=== PATIENT | male | born 1950 | race Two or more races ===

== ENCOUNTER 2022-10-22 06:30 | Inpatient (IN) | payer BC ==
[~2022-10-22] VITALS: Ht 170.2 cm; Wt 65.8 kg
--- NOTE | 2022-10-22 06:43 | NUR ---
URINE COLLECTED SENT TO LAB
--- NOTE | 2022-10-22 06:58 | NUR ---
Radha AOx4, able to express his concerns. Radha states he has had abdominal pain since last night. Reports he has a hx. of ulcers and regularly follows up with GI. Discussed plan of care, radha verbalized agreement. All safety precautions taken.
[2022-10-22] MEDS ORDERED: IV NS 0.9% 1,000 ML BAG IV ONE (07:00)
[2022-10-22] MEDS ORDERED: ONDANSETRON HCL/PF 4 MG/2 ML VIAL IVP ONE (07:00)
[2022-10-22] MEDS ORDERED: MORPHINE SULFATE INJ 2 MG/ML DISP.SYRIN IV ONE ×2 (07:00→18:30)
[2022-10-22] MEDS ORDERED: ONDANSETRON HCL/PF 4 MG/2 ML VIAL ONE (07:10)
[2022-10-22] MEDS ORDERED: MORPHINE SULFATE INJ 4 MG/ML DISP.SYRIN ONE (07:11)
--- NOTE | 2022-10-22 07:15 | NUR ---
RECEIVED PT FROM GALILEO MACKAY PT AWAKE AND ALERT NO PAIN AT THIS TIME
[2022-10-22 07:48] LABS: BASOPHILS % (AUTO) 0.3 % (0.0-2.0); EOSINOPHILS % (AUTO) 0.5 % (0.0-6.0); HEMATOCRIT 50 % (39-51); HEMOGLOBIN 16.2 g/dL (13.5-17.5); LYMPHOCYTES # (AUTO) 1.6 K/uL (0.8-4.8); LYMPHOCYTES % (AUTO) 13.6 % (20.0-44.0); MEAN CORPUSCULAR HGB CONC 33 g/dl (31.0-36.0); MEAN CORPUSCULAR VOLUME 92 fL (80-96); MONOCYTES # (AUTO) 0.6 K/uL (0.1-1.30); NEUTROPHILS # (AUTO) 9.7 K/uL (1.8-8.9); NEUTROPHILS % (AUTO) 80.6 % (43.0-81.0); PLATELET COUNT (AUTO) 320 K/uL (150-450); RED BLOOD CELL COUNT(AUTO) 5.39 MIL/uL (4.5-6.0)
[2022-10-22 07:56] LABS: CALCIUM, SERUM 9.5 mg/dL (8.5-10.1); CARBON DIOXIDE 24 mmol/L (21-32); CHLORIDE 106 mmol/L (98-107); GLUCOSE 109 mg/dL (74-106); SODIUM SERUM 141 mmol/L (136-145); UREA NITROGEN, BLOOD 10 mg/dL (7-18)
[2022-10-22 08:03] LABS: ALANINE AMINOTRANSFERASE 60 U/L (12-78); ALBUMIN 3.7 g/dL (3.4-5.0); ALKALINE PHOSPHATASE 125 U/L (46-116); ASPARTATE AMINOTRANSFERASE 26 U/L (15-37); BILIRUBIN,DIRECT 0.4 mg/dL (0.0-0.2); BILIRUBIN,TOTAL 0.8 mg/dL (0.2-1.0); LIPASE 139 U/L (73-393); TOTAL PROTEIN, SERUM 7.7 g/dL (6.4-8.2)
[2022-10-22 08:59] LABS: BILIRUBIN,URINE NEGATIVE (NEGATIVE); COLOR,URINE YELLOW (YELLOW); LEUKOCYTE ESTERASE ,URINE NEGATIVE (NEGATIVE); NITRITE, URINE NEGATIVE (NEGATIVE); PROTEIN,URINE NEGATIVE (NEGATIVE); UGLUCOSE NEGATIVE (NEGATIVE); UROBILINOGEN,URINE 0.2 EU/dL (0.2)
[2022-10-22] MEDS ORDERED: LEVO88TA5 PO (09:31)
[2022-10-22] MEDS ORDERED: SUCR1TAB PO (09:31)
[2022-10-22] MEDS ORDERED: TRAZ-182 PO (09:31)
--- NOTE | 2022-10-22 09:48 | NUR ---
ROOM 118-2
[2022-10-22] MEDS ORDERED: MAG HYDROX/AL HYDROX/SIMETH 30 ML UDC PO PRN (10:00)
[2022-10-22] MEDS ORDERED: Z GUARD REMEDY 4 OZ OINT TP PRN (10:00)
[2022-10-22] MEDS ORDERED: MAGNESIUM HYDROXIDE 30 ML UDC PO PRN (10:00)
[2022-10-22] MEDS ORDERED: ZOLPIDEM TARTRATE 5 MG TABLET PO PRN ×2 (10:00→21:00)
[2022-10-22] MEDS ORDERED: TRAZODONE 50 MG TABLET PO PRN (10:00)
[2022-10-22] MEDS ORDERED: ONDANSETRON HCL/PF 4 MG/2 ML VIAL IVP PRN (10:00)
[2022-10-22] MEDS ORDERED: ACETAMINOPHEN 325 MG TABLET PO PRN (10:00)
--- NOTE | 2022-10-22 10:30 | NUR ---
HAND OFF Imani GOETZ RN TO ROOM 118-2 VIA GARLEEANN STABLE VS AWAKE AND ALERT
[2022-10-22] MEDS ORDERED: PIPERACI/TAZO 3.375GM/D5W 50ML PB IV ONE (10:31)
--- NOTE | 2022-10-22 10:50 | NUR ---
CHEMICAL RECOVERY OPERATOR NOTE PT ALERT AND ORIENTED X4, VERBALLY RESPONSIVE AND ON ROOM AIR. KOREAN SPEAKING ONLY.IV ACCES ON RIGHT ARM, IV INTACT, PATENT AND FLUSHING WELL. PT IS AMBULATORY. NO PAIN OR DISCOMFORT AT THIS TIME. MED SURG STATUS. ALL SAFETY MEASURES IN PLACE, BED LOCKED IN LOWEST POSITION. SIDE RAILS UP X2.
[2022-10-22 11:18] VITALS: BP 115/81
--- NOTE | 2022-10-22 11:40 | NUR ---
rn note pt left for HIDA scan
[2022-10-22] MEDS ORDERED: PIPERACILLIN /TAZOBACTAM 3.375 G in IV D5W 50 ML IV SCH (12:00)
[2022-10-22] MEDS: SUCRALFATE 1 G TABLET PO SCH ×3 (13:00→21:29)
[2022-10-22] MEDS: PIPERACILLIN /TAZOBACTAM 3.375 G in IV D5W 100 ML IV SCH ×2 (13:06→21:30)
[2022-10-22] MEDS: IV NS 0.9% 1,000 ML IV PRN (13:06)
--- NOTE | 2022-10-22 13:06 | NUR ---
RN NOTE PT BACK FROM HIDA SCAN
--- NOTE | 2022-10-22 13:39 | NUR ---
RN NOTE ANABAPTIST SON [phone]
[2022-10-22] MEDS: MORPHINE SULFATE INJ 2 MG/ML DISP.SYRIN IV PRN ×2 (15:17→20:06)
[2022-10-22 16:00] VITALS: BP 122/69
--- NOTE | 2022-10-22 18:11 | NUR ---
rn note notified brandi hopkins that pt complaining of severe abdominal pain and morphine was given 2 hours ago. obtained order from brandi hopkins to give morphine 1 mg 0.5 one time dose.order noted and carried out
--- NOTE | 2022-10-22 18:53 | NUR ---
rn note notified inpatient coder qian hopkins pt is asking for sleeping pill and if he can be npo except meds. said okay to order ambien 5 mg qHS PRN.order noted. pt currently npo except meds
--- NOTE | 2022-10-22 19:52 | NUR ---
MS RN CLOSING NOTE PT ALERT AND ORIENTED X4, VERBALLY RESPONSIVE AND ON ROOM AIR AT 97%. MALTESE SPEAKING ONLY.IV ACCES ON RIGHT ARM, IV INTACT, PATENT AND FLUSHING WELL. PT IS AMBULATORY. MED SURG STATUS. ALL SAFETY MEASURES IN PLACE, BED LOCKED IN LOWEST POSITION. SIDE RAILS UP X2.BED ALARM ON.ENDORSED TO OPERATIONS INSPECTOR RN FOR CONTUITY OF CARE
[2022-10-22 21:00] VITALS: BP 109/70
[2022-10-23] MEDS: MORPHINE SULFATE INJ 2 MG/ML DISP.SYRIN IV PRN ×2 (01:19→09:56)
[2022-10-23] MEDS: PIPERACILLIN /TAZOBACTAM 3.375 G in IV D5W 100 ML IV SCH ×2 (04:57→13:21)
[2022-10-23 05:00] VITALS: BP 119/71
[2022-10-23 06:41] LABS: BASOPHILS % (AUTO) 0.2 % (0.0-2.0); EOSINOPHILS % (AUTO) 0.1 % (0.0-6.0); HEMATOCRIT 44 % (39-51); HEMOGLOBIN 14.9 g/dL (13.5-17.5); LYMPHOCYTES # (AUTO) 1.3 K/uL (0.8-4.8); LYMPHOCYTES % (AUTO) 8.1 % (20.0-44.0); MEAN CORPUSCULAR HGB CONC 34 g/dl (31.0-36.0); MEAN CORPUSCULAR VOLUME 90 fL (80-96); MONOCYTES # (AUTO) 1.4 K/uL (0.1-1.30); MONOCYTES % (AUTO) 8.7 % (2.0-12.0); NEUTROPHILS # (AUTO) 13.7 K/uL (1.8-8.9); NEUTROPHILS % (AUTO) 82.9 % (43.0-81.0); PLATELET COUNT (AUTO) 278 K/uL (150-450); RED BLOOD CELL COUNT(AUTO) 4.91 MIL/uL (4.5-6.0); WHITE BLOOD COUNT (AUTO) 16.5 K/uL (4.3-11.0)
--- NOTE | 2022-10-23 06:47 | NUR ---
RN CLOSING NOTE A/OX4. ROM AIR. MED SURG STATUS. IVF RUNNING. IV ABX GIVEN. NPO X MEDS. PRN MORPHINE GIVEN WITH RELIEF. PATIENT STATE CARAFATE SEEMED TO HELP A LOT. HIDA SCAN RESULTED. PLAN FOR POSSIBLE SURGERY.
--- NOTE | 2022-10-23 07:00 | NUR ---
RN OPENING NOTE PATIENT A/OX4. ROM AIR WITH NO SIGN OR SYMPTOM SOF SOB, PAIN OR DISCOMFORT. IV ACCESS ON RAC AURA 18 WITH NS RUNNING AT 125 ML/HR. O NPO FOR POSSIBLE SURGERY. ALL SAFETY MEASURES IN PLACE, HOB ELEVATED, BED IN LOWEST AND LOCKED POSITION, SIDE RAILS UP X2. CALL LIGHT AND TABLE WITHIN REACH. WILL CONTINUE TO MONITOR.
[2022-10-23 07:17] LABS: ALANINE AMINOTRANSFERASE 45 U/L (12-78); ALKALINE PHOSPHATASE 94 U/L (46-116); ASPARTATE AMINOTRANSFERASE 16 U/L (15-37); BILIRUBIN,TOTAL 1.7 mg/dL (0.2-1.0); CALCIUM, SERUM 8.9 mg/dL (8.5-10.1); CARBON DIOXIDE 25 mmol/L (21-32); CHLORIDE 105 mmol/L (98-107); GLUCOSE 110 mg/dL (74-106); LIPASE 67 U/L (73-393); PHOSPHORUS 3.1 mg/dL (2.5-4.9); POTASSIUM 4.1 mmol/L (3.5-5.1); SODIUM SERUM 140 mmol/L (136-145); TOTAL PROTEIN, SERUM 6.8 g/dL (6.4-8.2); UREA NITROGEN, BLOOD 9 mg/dL (7-18)
[2022-10-23] MEDS ORDERED: LEVOTHYROXINE SODIUM 88 MCG TABLET PO SCH (07:30)
[2022-10-23] MEDS: SUCRALFATE 1 G TABLET PO SCH ×2 (08:20→13:21)
[2022-10-23] MEDS ORDERED: PANTOPRAZOLE 40 MG VIAL IV SCH (09:00)
[2022-10-23] MEDS: IV NS 0.9% 1,000 ML IV PRN (09:48)
[2022-10-23 16:38] VITALS: BP 121/67
--- NOTE | 2022-10-23 16:39 | NUR ---
RN NOTE PATIENT'S DAUGHTER EDMAR AT BEDSIDE REQUESTING TO DC PATIENT AGAINS MEDICAL ADVICE. ANTHONY Imani NOTIFIED. PATIENT AND DAUGHTER TALKING IN PERSON WITH DOCTOR LONNIE AND STILL REQUESTING TO BE DC. PATIENT SIGNED AMA FORM AND BELONGINGS, ALL BELONGINGS WITH PATIENT. PATIENT AND DAUGHTER GIVEN INSTRUCTIONS ABOUT RISKS OF LEAVING AMA. DAUGHTER REPLIED THAT SHE IS TAKING PATIENT TO [facility] BECAUSE THE DOCTORS ARE FAMILIAR WITH HIM. PATIENT LEFT VIA WHEELCHAIR WITH BRET VIA PRIVATE CAR.
== END 2022-10-23 16:40 | disposition left against medical advice (07) | DRG 446 ==
LOC: ER 06:38 → MEDSG1 10:11
PROVIDERS: ADMIT Nurse Practitioner Acute Care; ATTEND Nurse Practitioner Acute Care
DX: K81.0 Acute cholecystitis (principal); K25.9 Gastric ulcer, unspecified as acute or chronic, without hemorrhage or perforation; Z79.890 Hormone replacement therapy; Z79.899 Other long term (current) drug therapy; K82.8 Other specified diseases of gallbladder; E03.9 Hypothyroidism, unspecified; R74.01 Elevation of levels of liver transaminase levels
CPT/HCPCS: 36415; 71045-TC; 74181-TC; 76705-TC; 78226; 80048-TC; 80053-TC; 80076-TC; 83690-TC; 83735-TC; 84100-TC; 85025-TC; 85610-TC; 85730-TC; A4223; A9537; C9113; G0378; J2270; J2405; J2543; J7030; J7060